=== PATIENT | female | born 2000 | race Caucasian/White ===

== ENCOUNTER 2024-05-26 22:06 | Emergency (ER) | payer BC, SELFPAY ==
[2024-05-26 22:10] VITALS: BP 122/79
[2024-05-26] MEDS: ZOFRAN ODT (ORALLY DISINTEGRATING) 4 MG PO (22:21)
[2024-05-26 22:44] LABS: COVID-19 Antigen Negative (Negative)
[2024-05-27 01:00] VITALS: BP 102/70
[2024-05-27] MEDS: NSS 500 IV ×2 (01:04→02:10)
[2024-05-27 01:17] LABS: % Basophils 0.4 % (0-2); % Eosinophils 0.1 % (0-6); % Immature Granulocytes 0.3 % (0-0.5); % Lymphocytes 9.6 % (20.5-51.1); % Neutrophils 81.6 % (42.2-75.2); Absolute Lymphocytes 0.7 10^3/uL (1.2-3.4); Absolute Monocytes 0.6 10^3/uL (0.1-0.6); Hemoglobin 14.5 g/dL (12.0-16.0); Mean Corpuscular Hgb 26.6 pg (27.0-31.0); Mean Corpuscular Volume 80.6 fL (81.0-99.0); Nucleated Red Blood Cells % 0 %; Platelet Count 200 10^3/uL (130-400); Red Blood Cell Count 5.46 10^6/uL (4.20-5.40); Red Cell Dist. Width 12.6 % (11.5-14.5); White Blood Cell Count 7.3 10^3/uL (4.8-10.8)
[2024-05-27 01:28] LABS: ALT (SGPT) 21 U/L (0-35); AST (SGOT) 25 U/L (14-36); Albumin 5.1 g/dl (3.5-5.0); Alkaline Phosphatase 57 U/L (38-126); Blood Urea Nitrogen 23 mg/dl (7-17); Calcium 9.4 mg/dl (8.4-10.2); Carbon Dioxide 25 mmol/L (22-30); Chloride 97 mmol/L (98-107); Glucose 138 mg/dl (70-99); Sodium 135 mmol/L (135-145); Total Bilirubin 1.1 mg/dl (0.2-1.3); Total Protein 7.8 g/dl (6.3-8.2); eGFR > 60.00
[2024-05-27 01:47] VITALS: BMI 24.8
[2024-05-27 02:00] VITALS: BP 100/68
--- NOTE | 2024-05-27 02:17 | ED.GENMED ---
History of Present Illness
General
Chief Complaint: Abdominal Symptoms
Source: patient
Exam Limitations: none
Time Seen by Provider: 05/27/24 01:07
Nursing documentation reviewed up to this point in time: agreed with
History of Present Illness
History of Present Illness:
Patient to ED wt complaint of n/v/d x 24 hours Unable to keep anything down. Brought to ED by mother for eval. Denies fever/chills. No abd. pain
Past History
Past History
ED Past Medical History: None
ED Past Surgical History: None
Review of Systems
Review of Systems
Allergies reviewed?: Yes
All Other Systems: ROS reviewed and negative except as documented in HPI and ROS
Constitutional: Reports no symptoms
EENT: Reports no symptoms
Respiratory: Reports no symptoms
Cardiac: Reports no symptoms
ABD/GI: Reports nausea, vomiting and diarrhea
: Reports no symptoms
Musculoskeletal: Reports no symptoms
Skin: Reports no symptoms
Neurological: Reports no symptoms
Psychiatric: Reports no symptoms
Phy Exam
General Physical Exam
General Presentation: well appearing and no apparent distress
General age: appears stated age
General Skin: warm and dry
General Habitus: normal
Gastrointestinal Exam
Gastrointestinal Exam: normal bowel sounds, non tender, soft, no organomegaly, non distended and no cva tenderness
Musculoskeletal Exam
Musculoskeletal Exam: full ROM and neuro vasc intact
Skin Exam
Skin Exam: normal color, warm/dry and no rash
Psychiatric Exam
Psychiatric Exam: normal mood/affect
Course
Orders/Labs/Results
Orders:
Orders
05/26/24 22:20
Ondansetron Orally Disint [Zofran Odt (Orally Disintegrating)] 4 mg .ROUTE .STK-MED ONE
Ondansetron Orally Disint [Zofran Odt (Orally Disintegrating)] 4 mg PO NOW STA
05/26/24 22:22
COVID-19 Antigen Urgent
Source: Nasal Swab
Influenza A+B Rapid Molecular Urgent
JESSY Source: Nasal Swab
Specimen Description:
05/27/24 01:02
Complete Blood Count/With Diff Urgent
Comprehensive Metabolic Panel Urgent
05/27/24 01:03
0.9% Sodium Chloride 500 ml [Nss] 500 ml IV BOLUS
05/27/24 01:53
0.9% Sodium Chloride 500 ml [Nss] 500 ml IV BOLUS
05/27/24 02:29
Ondansetron Injectable [Zofran] 4 mg IV NOW STA
Abnormal Lab Results
05/27/24
01:02
RBC 5.46 H 10^6/uL
(4.20-5.40)
MCV 80.6 L fL
(81.0-99.0)
MCH 26.6 L pg
(27.0-31.0)
Absolute Lymphs (auto) 0.7 L 10^3/uL
(1.2-3.4)
Neutrophils % 81.6 H %
(42.2-75.2)
Lymphocytes % 9.6 L %
(20.5-51.1)
Chloride 97 L mmol/L
(98-107)
BUN 23 H mg/dl
(7-17)
Glucose 138 H mg/dl
(70-99)
Albumin 5.1 H g/dl
(3.5-5.0)
05/27/24 01:02
05/27/24 01:02
Vital Signs
Initial and Last Documented VS:
Initial Vital Signs
Temp Pulse Resp BP Pulse Ox
99.7 F 111 18 122/79 97
05/26/24 22:10 05/26/24 22:10 05/26/24 22:10 05/26/24 22:10 05/26/24 22:10
Last Documented Vital Signs
Temp Pulse Resp BP Pulse Ox
99.7 F 81 17 100/68 100
05/26/24 22:10 05/27/24 01:11 05/27/24 01:11 05/27/24 02:00 05/27/24 02:15
*Critical Care Note
Total Time (30-74mins, 75-104mins- exclusive of procedures): Not Applicable
Update Note
Update Note:
Improved with IVF, zofran. No vomiting or diarrhea while in ED. Able to tolerate po fluids. Will dishcarge home, close follow up with PCP. Rx for zofran prn provided.
ED Attending Note
-
Portions of this chart may have been created with voice recognition software.� Occasional wrong word or��sound alike� substitutions may have occurred due to the inherent limitations of voice recognition software.
Discharge Plan
Departure
Patient Disposition: Home (Routine Discharge)
Date of Disposition: 05/27/24
Time of Disposition: 02:29
Patient with high blood pressure during this ER visit?: No
Condition: Good
Covid-19: Not Applicable
Discharge Problem:
Vomiting and diarrhea
Instructions: Diarrhea in teens and adults, Clear Liquid Diet, Dehydration, Adult (DC), Nausea and Vomiting, Adult (DC)
Prescriptions:
New
ondansetron 4 mg tablet,disintegrating
4 mg PO Q8H PRN (Reason: nausea and vomiting) 3 Days Qty: 10 0RF
Referrals:
Nupur Barrera MD [Family Provider] - Follow up in 2-3 days
Activity Restrictions/Additional Instructions:
Return to the emergency department immediately for any changes in/worsening of your symptoms.
Interventions
Interventions:
*Risk Screen - Suicide Last Done: 05/26/24 22:10
*General Assessment Last Done: 05/26/24 22:10
*Neglect/Abuse Screening Last Done: 05/26/24 22:10
*ED COVID-19 Vaccine History Last Done: 05/26/24 22:10
*Nursing Disposition Last Done: 05/27/24 03:04
[facility] Assessment Last Done: 05/27/24 01:48
Discharge Date and Time
Discharge Date/Time: 05/27/24 03:05
Print Language: SUDANESE
[2024-05-27] MEDS: ZOFRAN 4 MG IV (02:41)
== END 2024-05-27 03:05 | disposition home or self-care (01) ==
LOC: EMR 22:06
PROVIDERS: Student in an Organized Health Care Education/Training Program; EMERGENCY PHYSICIAN Student in an Organized Health Care Education/Training Program; FAMILY PHYSICIAN Family Medicine
DX: R11.2 Nausea with vomiting, unspecified (principal); R19.7 Diarrhea, unspecified
CPT/HCPCS: 99282; 96374; 96361; 80053; 85025; 87502; 87811